=== PATIENT | male | born 1965 | race Caucasian/White ===

== ENCOUNTER → 2017-01-01 | Day surgery (SDC) | payer OTHER ==
--- NOTE | 2016-12-31 18:44 | MH ---
cc: [facility] DATE OF ADMISSION 01/01/2017 ADMISSION DIAGNOSIS Lumbar spinal stenosis. HISTORY OF THE PRESENT ILLNESS This patient is a 51-year-old white male with significant back, hip and leg pain. The patient indicated he had a work-related injury to his lumbar spine in July of 2006 while working at [employer]. He had conservative care and was eventually referred to Dr. José Gregorio. The patient underwent bilateral laminectomy, diskectomy at L4-5 in 2009. The patient underwent L4-S1 laminectomy and fusion with posterior instrumentation. The patient had a neurostimulator placed at some point. The patient had a significant large bowel obstruction and apparently had a rupture secondary to diverticulosis. He underwent surgical treatment at that time. The patient was seen in [place] and was recommended to have extensive low back surgery. I have been asked to see him in consultation. The patient was felt to be a candidate to have a laminectomy without a fusion at L2-3 and L3-4. The patient now presents for surgical treatment. PAST MEDICAL HISTORY, SOCIAL HISTORY, FAMILY HISTORY AND REVIEW OF SYMPTOMS See attached notes. PHYSICAL EXAMINATION VITAL SIGNS: 5 feet 11-1/1 inches, 313 pounds, BMI 43. Blood pressure 130/62. HEENT: Normocephalic, atraumatic. Pupils equal, round, reactive to light and accommodation. Extraocular motions intact. NECK: Supple. CHEST: Clear. HEART: Regular rate and rhythm. ABDOMEN: Soft, nontender. Normoactive bowel sounds. MUSCULOSKELETAL: See attached notes. IMPRESSION 1. Status post lumbar fusion L4-S1, stable. 2. Lumbar spinal stenosis L2-L3, and L3-L4. PLAN Right lumbar laminectomy L2-3, L3-4, lateral recess decompression, use of dilation port and microscope. CONSENT The risks with surgery including infection, bleeding, loss of motion, continued pain, need for further surgery, neurologic and vascular injury. The patient understands these issues and wishes to press on with surgery as outlined above. MD CAMILLE Bryant/KIRA /5:57 PM /6:36 PM
[~2017-01-01] VITALS: Ht 185.4 cm; Wt 145.7 kg
[~2017-01-01] MED LIST: ACETAMINOPHEN/HYDROcodone 325 MG/7.5 MG TAB PO PRN; BUPIVACAINE/EPINEPHRINE 0.25% PF 10 ML VIAL ONE; CALC600T25 PO; CHLORHEXIDINE GLUCONATE 2 % 1 PACK (2 CLOTHS) TOPICAL PRN; DEXAMETHASONE SOD PHOS 4 MG/ML VIAL ONE; DO NOT ADM ANY ANTICOAGULANT DRUGS PRN; FAMOTIDINE 20 MG/2 ML VIAL ONE; GELATIN 12 MM/7 MM FOAM ONE; GENTAMICIN SULFATE 80 MG/2 ML VIAL ONE; HYDR-3288 PO; HYDR-3583 PO; INSULIN HUMAN REGULAR 1,000 UNITS/10 ML VIAL SQ PRN; KETAMINE HCL 500 MG/5 ML VIAL ONE; KETOROLAC TROMETHAMINE 60 MG/2 ML (IM) VIAL IM ONE; LACTATED RINGER'S 1000 ML IV PRN; LYRI75CA PO; MAGNESIUM SULFAT 1 GM PREMIX 100 ML x2 bags IV SCH; MAGNESIUM SULFATE 1 GM/2 ML VIAL IV ONE; METOPROLOL TARTRATE 25 MG TAB PO PRN; MIDAZOLAM HCL 2 MG/2 ML VIAL ONE; MORPHINE SULFATE 4 MG/ML INJ IV PUSH PRN; MULT-65 PO; NEOSTIGMINE 3 MG/3 ML SYR IV ONE; ONDANSETRON HCL 4 MG/2 ML VIAL IV PUSH ONE; POVIDONE IODINE 5% (ANTISEPSIS KIT) 4 APPLICATIONS EACH NARE PRN; POVIDONE IODINE 7.5% SCRUB 118 ML BOTTLE TOPICAL SCH; PROPOFOL 200 MG/20 ML AMP IV ONE; SODIUM CHLORID 0.9% 500 ML IV PRN; VITA500T4 PO; ceFAZolin 2 GM PREMIX 50 ML IV SCH; ePHEDrine/NS 25 MG/5 ML SYR IV ONE; fentaNYL CITRATE 250 MCG/5 ML AMP ONE
[2017-01-01 11:36] VITALS: BP 148/93; PULSE 74; RESP 18; TEMP 98.6; O2SAT 96
--- NOTE | 2017-01-01 13:52 | EKG ---
Date Performed: 01/01/2017 Time Performed: 11:27:22 PTAGE: 51 years EKG: Sinus rhythm MARKED LEFT AXIS DEVIATION ABNORMAL ECG NO SIGNIFICANT CHANGE FROM PRIOR ELECTROCARDIOGRAM. PREVIOUS TRACING : 03/19/2008 07.08 DOCTOR: Conrad De La Cruz Interpretating Date/Time 01/01/2017 13:51:31
--- NOTE | 2017-01-01 17:03 | PD.OP ---
cc: Juan [facility]. Operative Report Date of Surgery: Jan 01, 2017 Preoperative Diagnosis: Status post laminectomy and fusion L4 to S1, remote. Degenerative disc disease lumbar spine. Lumbar spinal stenosis L2-3 and L3 4. Right lumbosacral radiculopathy. Postoperative Diagnosis: Same Procedure: Partial bilateral lumbar laminectomy from the right L2, L3 with lateral recess decompression and partial medial facetectomy. Partial bilateral lumbar laminectomy from the right L3, L4 with lateral recess decompression and partial medial facetectomy. Use of dilation port and microscope Anesthesia: Gen. Surgeon: [facility] Concrete Gun Operator(s): JULIOCESAR Chatterjee Operation and Findings: EBL: 150 cc INDICATION: Patient is a 51-year-old male status post previous fusion L4 to the sacrum which has healed. The patient has very advanced degenerative disc disease above that. He has significant radiating right leg pain related to spinal stenosis at L2-3 and L3 4. He presents for surgical treatment. NOTE: Kimberly Chatterjee PA-C was present for the entire surgical procedure as my engineer first assistant. In my medical opinion her skill and care was necessary for the proper management of this patient. PROCEDURE: The patient was brought to the operating room and anesthetized in the supine position. The patient was rolled to a prone position on a Jose Luis frame on a Bruce table. All pressure points were protected in the back was scrubbed with alcohol followed by Hibiclens followed by ChloraPrep and draped sterilely. A timeout was done and antibiotics were given. AP and lateral radiographic images were used to identify the proper levels and perform skin markings. We started from the right side at the L2-3 level. A paramedian incision was made and an off-midline fascial incision was made. A dilating system was placed down to the interlaminar space and held provisionally to the side of the table. The microscope was brought into the field. A high-speed bur under the microscope was used to perform a are showed bilateral laminectomy from that side. A lateral recess decompression involving predominantly the right side was accomplished using straight and angled Kerrison punches. A partial medial facetectomy was accomplished. The crossing and exiting nerve roots were completely decompressed. There was a high-grade stenosis. Bulging of the disc at that level was noted. No evidence of a disc herniation was noted. The decompression was very satisfactory. We moved to the L3 4 level. A separate fascial incision was made. A dilating system was placed down to the interlaminar space and held provisionally to the side of the table. The microscope was brought back into the field. A high- speed bur under the microscope was used to perform a bilateral laminectomy from that side. A lateral recess decompression bilaterally was accomplished using straight and angled Kerrison punches. A partial medial facetectomy was accomplished. The crossing and exiting nerve roots were completely decompressed. There was a high-grade lateral recess stenosis which was decompressed. The crossing L4 nerve root was severely trapped and very irritated. The decompression was very satisfactory. The wound was irrigated copiously. Hemostasis was controlled. The deep fascia was approximated with interrupted 0 Vicryl suture subcutaneous suture with 2-0 Vicryl suture and skin with running intradermal 3-0 Vicryl followed by Dermabond. A field block with local anesthesia was utilized. A sterile dressing was applied. The sponge count and needle counts and instrument counts were all correct. The patient tolerated the procedure well as taken to the recovery room in satisfactory condition. FINDINGS: There was evidence of a high-grade lateral recess stenosis predominantly to the right side at both levels. A moderate central stenosis was found also which was decompressed very satisfactorily. No complication was appreciated. [facility] MD Jan 01, 2017 17:03
--- NOTE | 2017-01-01 17:29 | RADRPT ---
EXAM DATE/TIME: 01/01/2017 15:17 [facility] COMPARISON: CT LUMBAR SPINE W CONTRAST W 3D RECON, October 18, 2010, 22:11. SPINE LUMBAR LTD (AP & LAT), July [id number], 14:05. INDICATIONS : L2-L3, L3-L4 laminectomy. MEDICAL HISTORY : None. SURGICAL HISTORY : Fusion, lumbar. ENCOUNTER: Initial ACUITY: 1 day PAIN SCORE: Non-responsive. LOCATION: Bilateral lumbar spine FINDINGS: A very limited single lateral view of the lumbar spine was performed intraoperatively. Surgical hard ivey is noted posteriorly but the level cannot be confirmed with certainty on the basis of this singl e film. Diffuse degenerative changes are noted throughout the visualized lumbar spine. Hardware is noted within the lower lumbar spine. CONCLUSION: Limited intraoperative lateral film of the lumbar spine as described above. Heriberto Polanco MD on January 01, 2017 at 17:12 Board Certified Radiologist. This report was verified electronically.
[2017-01-01 18:28] VITALS: BP 118/69; PULSE 78; RESP 18; TEMP 97.5; O2SAT 98
== END | disposition home or self-care (01) ==
LOC: HSDC 10:33
PROVIDERS: ATTEND Orthopaedic Surgery Orthopaedic Surgery of the Spine
DX: M48.06 Spinal stenosis, lumbar region (principal); M51.36 Other intervertebral disc degeneration, lumbar region; M54.17 Radiculopathy, lumbosacral region; Z98.1 Arthrodesis status; Z01.810 Encounter for preprocedural cardiovascular examination
CPT/HCPCS: 00630; 63047; 63048; 72020; 76000; 93005; J0690; J1100; J1580; J1885; J2250; J2405; J2710; J3010; J3475